=== PATIENT | female | born 1940 | race African-American/Black ===

== ENCOUNTER 2018-04-13 07:37 | Inpatient (IN) | payer BC ==
[~2018-04-13] VITALS: Ht 165.1 cm; Wt 66.2 kg
[2018-04-13] MEDS ORDERED: AMLO5TAB88 MT (08:22)
[2018-04-13] MEDS ORDERED: SIMV20TA6 MT (08:22)
[2018-04-13] MEDS ORDERED: ZINC220T MT (08:22)
[2018-04-13] MEDS ORDERED: LORA10TA7 MT (08:22)
[2018-04-13] MEDS ORDERED: SOTA80TA MT (08:22)
[2018-04-13] MEDS ORDERED: DYZ MT (08:22)
[2018-04-13 08:36] LABS: BASOPHILS % 0.5 % (0.0-2.0); EOSINOPHILS % 0.9 % (0.0-5.0); HEMATOCRIT. 38.2 % (36.0-48.0); HEMOGLOBIN. 12.4 g/dL (12.0-16.0); LYMPHOCYTES % 43.7 % (20.0-50.0); MEAN CORPUSCULAR HEMOGLOBIN 28.7 pg (28.0-32.0); MEAN CORPUSCULAR VOLUME 88.1 fL (81.0-99.0); MEAN PLATELET VOLUME 8.3 fl (7.4-10.4); MONOCYTES % 10.5 % (2.0-8.0); NEUTROPHILS % 44.4 % (40.0-76.0); PLATELET 278 x1000/uL (130-400); RED BLOOD CELL COUNT 4.34 mill/uL (4.2-5.4); RED CELL DISTRIBUTION WIDTH 13.9 % (11.6-14.6)
[2018-04-13 08:37] LABS: CHLORIDE 99 mEq/L (98-107)
[2018-04-13] MEDS ORDERED: POTASSIUM CHLORIDE 20MEQ TABLET SR PO ONE (09:45)
[2018-04-13 09:55] LABS: PARTIAL THROMBOPLASTIN TIME 28.7 sec (23.4-31.0); PROTHROMBIN TIME 10.2 sec (9.1-11.1)
[2018-04-13 10:29] LABS: D-DIMER 0.55 mg/L FEU (<0.50)
[2018-04-13] MEDS ORDERED: SODIUM CHLORIDE 0.9% 1,000 ML IV ONE (10:34)
[2018-04-13] MEDS ORDERED: HYDRALAZINE 20MG/ML VIAL IV ONE (10:45)
[2018-04-13] MEDS ORDERED: IOHEXOL-350 100 ML BOTTLE ONE (11:18)
[2018-04-13] MEDS ORDERED: ACETAMINOPHEN 325MG TABLET PO PRN (11:45)
[2018-04-13 12:15] VITALS: BP 122/72
[2018-04-13 12:30] VITALS: BP 122/72
[2018-04-13] MEDS ORDERED: AMLODIPINE 5MG TABLET PO SCH (13:19)
[2018-04-13] MEDS ORDERED: REGADENOSON 0.4 MG/5 ML IV ONE (14:00)
[2018-04-13] MEDS ORDERED: CLONIDINE 0.1MG TABLET PO PRN (14:00)
[2018-04-13] MEDS ORDERED: CLONIDINE 0.2MG TABLET PO PRN (14:00)
[2018-04-13] MEDS ORDERED: DILTIAZEM HCL 5MG/ML 5ML VIAL IV PRN (14:15)
[2018-04-13 16:00] VITALS: BP 115/23
[2018-04-13] MEDS ORDERED: PNEUMOCOCCAL 23-VAL P-SAC VAC 0.5 ML IM ONE (16:15)
[2018-04-13] MEDS ORDERED: INFLUENZA VIRUS VACCINE(AFLURIA) 0.5ML SYR IM ONE (16:15)
[2018-04-13] MEDS: ENOXAPARIN 80MG/0.8ML SYR SUBCUT SCH (17:13)
[2018-04-13] MEDS ORDERED: DILTIAZEM HCL 60MG TABLET PO SCH (18:00)
[2018-04-13] MEDS: DILTIAZEM HCL 90MG TABLET PO SCH (19:11)
[2018-04-13 20:00] VITALS: BP 137/65
[2018-04-13] MEDS: ATORVASTATIN CALCIUM 20MG TABLET PO SCH (21:23)
[2018-04-14] VITALS: BP 109/64
[2018-04-14 04:00] VITALS: BP 115/61
[2018-04-14] MEDS: DILTIAZEM HCL 90MG TABLET PO SCH ×4 (06:00→17:51)
[2018-04-14 07:19] LABS: BASOPHILS % 0.7 % (0.0-2.0); EOSINOPHILS % 0.8 % (0.0-5.0); HEMATOCRIT. 38.3 % (36.0-48.0); HEMOGLOBIN. 12.6 g/dL (12.0-16.0); LYMPHOCYTES % 43.1 % (20.0-50.0); MEAN CORPUSCULAR HEMOGLOBIN 28.9 pg (28.0-32.0); MEAN CORPUSCULAR VOLUME 87.7 fL (81.0-99.0); MEAN PLATELET VOLUME 8.2 fl (7.4-10.4); MONOCYTES % 12.7 % (2.0-8.0); NEUTROPHILS % 42.7 % (40.0-76.0); PLATELET 278 x1000/uL (130-400); RED BLOOD CELL COUNT 4.37 mill/uL (4.2-5.4); RED CELL DISTRIBUTION WIDTH 14.2 % (11.6-14.6)
[2018-04-14 07:53] LABS: CREATINE KINASE MB FRACTION 1.2 ng/mL (0.5-3.6)
[2018-04-14 08:00] VITALS: BP 102/74
[2018-04-14] MEDS: ASPIRIN 81MG EC TABLET PO SCH (08:38)
[2018-04-14] MEDS: LORATADINE 10MG TABLET PO SCH (08:39)
[2018-04-14] MEDS: ENOXAPARIN 80MG/0.8ML SYR SUBCUT SCH (08:40)
[2018-04-14] MEDS ORDERED: TRIAMTERENE/HYDROCHLOROTHIAZIDE 37.5/25MG CAPSULE PO SCH (09:00)
[2018-04-14] MEDS ORDERED: KCL 20MEQ/100ML PREMIX 100 ML IV NR (09:30)
[2018-04-14] MEDS ORDERED: DILTIAZEM HCL 5MG/ML 5ML VIAL IV NR (10:15)
[2018-04-14] MEDS ORDERED: MAGNESIUM 2 G PREMIX 50 ML IV NR (10:30)
[2018-04-14] MEDS ORDERED: POTASSIUM CHLORIDE 20MEQ TABLET SR PO NR (10:45)
[2018-04-14 16:26] VITALS: BP 108/67
[2018-04-14 20:00] VITALS: BP 116/75
[2018-04-14] MEDS: ATORVASTATIN CALCIUM 20MG TABLET PO SCH (20:49)
[2018-04-15] VITALS: BP 119/71
[2018-04-15] MEDS: DILTIAZEM HCL 90MG TABLET PO SCH ×3 (01:24→12:00)
[2018-04-15 03:57] VITALS: BP 115/59
[2018-04-15 07:58] LABS: HEMATOCRIT. 34.9 % (36.0-48.0); HEMOGLOBIN. 11.4 g/dL (12.0-16.0); MEAN CORPUSCULAR VOLUME 88.5 fL (81.0-99.0); MEAN PLATELET VOLUME 8.2 fl (7.4-10.4); PLATELET 249 x1000/uL (130-400); RED BLOOD CELL COUNT 3.95 mill/uL (4.2-5.4); RED CELL DISTRIBUTION WIDTH 14.2 % (11.6-14.6)
[2018-04-15 08:00] VITALS: BP 109/60
[2018-04-15 08:32] LABS: CHLORIDE 101 mEq/L (98-107)
[2018-04-15] MEDS: ASPIRIN 81MG EC TABLET PO SCH (08:46)
[2018-04-15] MEDS: LORATADINE 10MG TABLET PO SCH (08:46)
[2018-04-15] MEDS: ENOXAPARIN 80MG/0.8ML SYR SUBCUT SCH (08:46)
[2018-04-15 12:00] VITALS: BP 128/53
[2018-04-15 14:00] VITALS: BP 128/53
[2018-04-15 15:48] LABS: PLATELET ESTIMATE NORMAL
[2018-04-15 16:32] LABS: CLARITY URINE CLEAR (CLEAR); COLOR URINE YELLOW (YELLOW); KETONES URINE NEGATIVE (NEGATIVE); LEUKOCYTE ESTERASE URINE 2+ (NEGATIVE); NITRITE URINE NEGATIVE (NEGATIVE); OCCULT BLOOD URINE NEGATIVE (NEGATIVE); PH URINE 5.5 (4.5-8.0); PROTEIN URINE NEGATIVE (NEGATIVE); SPECIFIC GRAVITY URINE 1.009 (1.005-1.030); UROBILINOGEN URINE 0.2 E.U./dL (0.2-1.0)
[2018-04-15] MEDS ORDERED: ENOXAPARIN 80MG/0.8ML SYR SUBCUT SCH (21:00)
== END 2018-04-15 15:45 | disposition home or self-care (01) | DRG 313 ==
LOC: ER 08:03 → EDBD 08:03 → ENRESERV 09:59 → 8WST 11:48 → EDBEDREQ 11:49 → EDBEDREQTM 11:49
PROVIDERS: ADMIT Internal Medicine; ATTEND Internal Medicine
DX: R07.89 Other chest pain (principal); E46 Unspecified protein-calorie malnutrition; I48.1 Persistent atrial fibrillation; E78.00 Pure hypercholesterolemia, unspecified; E78.5 Hyperlipidemia, unspecified; E83.42 Hypomagnesemia; E87.6 Hypokalemia; I10 Essential (primary) hypertension; I25.10 Atherosclerotic heart disease of native coronary artery without angina pectoris; I48.0 Paroxysmal atrial fibrillation; I48.2 Chronic atrial fibrillation; Z68.24 Body mass index [BMI] 24.0-24.9, adult; Z79.899 Other long term (current) drug therapy
CPT/HCPCS: 36415; 71045; 71275; 78452; 80048; 80061; 82550; 82553; 83735; 83880; 84443; 84484; 85379; 90686; 90732; 93005; 93306; 93970; 97162; 99285; A9500; J1650; J3475; J3480; J3490; J7030; J7050; Q9967